=== PATIENT | female | born 1975 ===

== ENCOUNTER → 2021-08-10 09:14 | Outpatient (CLI) | payer OTHER | END | disposition home or self-care (01) | LOC: LAB 09:14 | PROVIDERS: ATTEND Orthopaedic Surgery | DX: D64.89 Other specified anemias (principal); E88.89 Other specified metabolic disorders; D68.8 Other specified coagulation defects; N39.0 Urinary tract infection, site not specified; Z22.322 Carrier or suspected carrier of Methicillin resistant Staphylococcus aureus; I10 Essential (primary) hypertension; I49.8 Other specified cardiac arrhythmias; Z76.89 Persons encountering health services in other specified circumstances ==

== ENCOUNTER 2021-08-24 12:24 | Day surgery (SDC) | payer OTHER ==
[~2021-08-24 12:24] MED LIST: AMITRIPTYLINE PO; HORIZANT300 MG PO
== END 2021-08-24 21:30 | disposition home or self-care (01) ==
LOC: CIR.AMB 12:24
PROVIDERS: ATTEND Orthopaedic Surgery
DX: M75.22 Bicipital tendinitis, left shoulder (principal); Z20.822 Contact with and (suspected) exposure to COVID-19